=== PATIENT | female | born 1955 | race Caucasian/White ===

== ENCOUNTER → 2018-12-05 | Outpatient (CLI) | payer BC ==
[~2018-12-05] MED LIST: CATHETER FLUSH 10 ML SYR IV PRN; REGADENOSON 0.4 MG/5 ML SYR (LEXISCAN) IV ONE
[2018-12-05 08:51] VITALS: BP 165/74
[2018-12-05 08:55] VITALS: BP 158/74
--- NOTE | 2018-12-08 09:29 | STRESS TEST ---
DATE OF SERVICE: 12/05/2018 RESTING AND POST REGADENOSON TECHNETIUM-99M TETROFOSMIN SPECT CT IMAGING ORDERING PHYSICIAN: Al Coffey MD, POWER, PARVEZ, FACC PRIMARY PHYSICIAN: GUS Brown CLINICAL DIAGNOSES: Coronary artery disease. Baseline images were carried out after injection of 10.96 mCi technetium-99m Tetrofosmin. This was followed by 0.4 mg regadenoson and 28.6 mCi technetium-99m Tetrofosmin for stress imaging. The electrocardiogram showed sinus rhythm at baseline. It did not change significantly with the regadenoson infusion. The patient tolerated the procedure well. Review of images at rest and following stress indicates an inferolateral perfusion defect that is partially transient. Gated images show normal global left ventricular systolic function with normal regional wall motion. Left ventricular ejection fraction is calculated to be 47%. Left ventricular end diastolic volume is 99 mL. TID is absent (1.08). CONCLUSIONS: 1. This study is indicative of inferolateral myocardial ischemia with probable inferolateral myocardial infarction. 2. Inferolateral hypokinesis. 3. Left ventricular ejection fraction is calculated to be 47%. Job ID: [id number] DocumentID: [id number] Dictated Date: 12/08/2018 08:59:28 Dental Detail Representative Date: 12/08/2018 09:28:14 Dictated By: AL COFFEY MD, POWER, JIMP, JIMC,
== END ==
LOC: CARD 06:58
PROVIDERS: ATTEND Internal Medicine Cardiovascular Disease
DX: I42.0 Dilated cardiomyopathy (principal); I11.0 Hypertensive heart disease with heart failure; I50.22 Chronic systolic (congestive) heart failure; I25.10 Atherosclerotic heart disease of native coronary artery without angina pectoris; E11.9 Type 2 diabetes mellitus without complications; E78.5 Hyperlipidemia, unspecified
CPT/HCPCS: 78452; 93017

== ENCOUNTER → 2018-12-08 | Outpatient (CLI) | payer BC | LOC: CARD 13:11 | PROVIDERS: ATTEND Internal Medicine Cardiovascular Disease | DX: I11.0 Hypertensive heart disease with heart failure (principal); I50.22 Chronic systolic (congestive) heart failure; I42.0 Dilated cardiomyopathy; I25.10 Atherosclerotic heart disease of native coronary artery without angina pectoris; E78.5 Hyperlipidemia, unspecified; E11.9 Type 2 diabetes mellitus without complications; I07.1 Rheumatic tricuspid insufficiency | CPT/HCPCS: 93306 ==

== ENCOUNTER 2018-12-16 07:56 | Day surgery (SDC) | payer BC ==
[~2018-12-16] VITALS: Ht 167.6 cm; Wt 158.8 kg
[2018-12-16] VITALS (9 sets, daily range): BP systolic 97–137; BP diastolic 46–91
[2018-12-16] MEDS ORDERED: HEParin 1000 UNIT/ML (10ML VIAL) FOR BOLUS ONE (08:21)
[2018-12-16] MEDS ORDERED: LIDOCAINE 1% INJ 20 ML 20 ML VIAL ONE (08:21)
[2018-12-16] MEDS ORDERED: NS IV 1000 ML 3,000 ML ONE (08:21)
[2018-12-16 08:45] LABS: HEMOGLOBIN 14.5 G/DL (11.5-16.0); MEAN PLATELET VOLUME 9.9 FL (7.4-10.4); RED CELL DISTRIBUTION WIDTH 13.8 % (10.0-14.5); WHITE BLOOD COUNT 9.9 10^3/uL (4.3-11.0)
[2018-12-16 08:57] LABS: PROTHROMBIN TIME PATIENT 13.4 SEC (12.2-14.7)
[2018-12-16 09:03] LABS: ALBUMIN 4.1 GM/DL (3.2-4.5); BILIRUBIN,TOTAL 0.4 MG/DL (0.1-1.0); CALCIUM 9.7 MG/DL (8.5-10.1); CREATININE SERUM 1.53 MG/DL (0.60-1.30); POTASSIUM 4.6 MMOL/L (3.6-5.0); TOTAL PROTEIN 7.8 GM/DL (6.4-8.2)
[2018-12-16] MEDS ORDERED: ATOR10TA66 PO (09:16)
[2018-12-16] MEDS ORDERED: MAGN250T13 PO (09:16)
[2018-12-16] MEDS ORDERED: ASPI-983 PO (09:16)
[2018-12-16] MEDS ORDERED: CARV25TA PO ×2 (09:16)
[2018-12-16] MEDS ORDERED: OMEP20CA12 PO (09:16)
[2018-12-16] MEDS ORDERED: INSU100V31 SC (09:16)
[2018-12-16] MEDS ORDERED: MONT10TA21 PO (09:16)
[2018-12-16] MEDS ORDERED: FURO40TA4 PO (09:16)
[2018-12-16] MEDS ORDERED: LIRA0.6P SQ (09:16)
[2018-12-16] MEDS ORDERED: QUIN20TA16 PO (09:16)
[2018-12-16] MEDS ORDERED: SITA50TA PO (09:16)
[2018-12-16] MEDS ORDERED: LORA-877 PO (09:16)
[2018-12-16] MEDS ORDERED: ONDA4TAB11 PO (09:16)
[2018-12-16] MEDS ORDERED: FLUT16SP22 NS (09:16)
[2018-12-16] MEDS ORDERED: INSU200I4 SQ (09:16)
[2018-12-16] MEDS ORDERED: SPIR50TA4 PO (09:16)
[2018-12-16] MEDS ORDERED: ACET-2650 PO (09:21)
[2018-12-16] MEDS ORDERED: FURO80TA3 PO (09:21)
[2018-12-16] MEDS ORDERED: OMG1KC PO (09:21)
[2018-12-16] MEDS ORDERED: ACET-2469 PO (09:21)
[2018-12-16] MEDS ORDERED: NS IV 1000 ML 1,000 ML IV SCH ×2 (09:30→11:41)
[2018-12-16] MEDS ORDERED: MIDAZOLAM 5 MG/5 ML (VERSED) VIAL ONE (10:49)
[2018-12-16] MEDS ORDERED: fentaNYL INJECTION 100 MCG/2 ML AMP ONE (10:49)
--- NOTE | 2018-12-16 11:24 | Cardiac Procedure Note-CS/ASA ---
Pre-Procedure Note Pre-Op Procedure Note H&P Reviewed The H&P was reviewed, patient examined and no changes noted. Date H&P Reviewed: Dec 16, 2018 Time H&P Reviewed: 11:23 Conscious Sedation Pre-Proced Time 11:23 ASA Score 4 For ASA 3 and 4: Consider anesthesia and medical clearance. Also, for patients with a history of failed moderate sedation consider anesthesia. Airway Lungs Heart ASA score ASA 1: a normal healthy patient ASA 2: a patient with a mild systemic disease (mid diabetes, controlled hypertension, obesity ASA 3: a patient with a severe systemic disease that limits activity (angina , COPD, prior Myocardial infarction) ASA 4: a patient with an incapacitating disease that is a constant threat to life (CHF, renal failure) ASA 5: a moribund patient not expected to survive 24 hrs. (ruptured aneurysm) ASA 6: a declared brain- patient whose organs are being harvested. For emergent operations, add the letter E after the classification Mallampati Classification Grade 2 Sedation Plan Analgesia, Amnesia, Plan communicated to team members, Discussed options with patient/fam, Discussed risks with patient/fam The patient is an appropriate candidate to undergo the planned procedure, sedation, and anesthesia. The patient immediately re-assessed prior to indication. PEPE MCCORMICK MD FACP FAC CCDS Dec 16, 2018 11:24
[2018-12-16] MEDS ORDERED: PATIENT MAY USE OWN MEDS, ALL PO SCH (11:45)
--- NOTE | 2018-12-16 11:46 | Discharge Inst-Cardiology ---
Discharge Inst-Cardiac Discharge Medications Continued Medications: Acetaminophen (Tylenol Arthritis) 650 Mg Tablet.er 1300 MG PO BID PRN for PAIN-MILD, TAB Acetaminophen/Diphenhydramine (Tylenol Pm Ex-Strength Caplet) 1 Each Tablet 2 TAB PO HS, TAB Aspirin (Aspirin EC) 81 Mg Tablet.dr 81 MG PO 1100, TAB Atorvastatin Calcium (Atorvastatin Calcium) 10 Mg Tablet 10 MG PO 1100, TAB Carvedilol (Carvedilol) 25 Mg Tablet 50 MG PO 1100, TAB TAKES 2 (25MG) TABLETS Carvedilol (Carvedilol) 25 Mg Tablet 25 MG PO 1900, TAB Fluticasone Propionate (Fluticasone Propionate) 16 Gm [place].susp 1 SPRAY NS DAILY PRN for ALLERGIES, SPRAY Furosemide (Furosemide) 80 Mg Tablet 20 MG PO 1100, TAB TAKES 1/4 (80MG) TABLET Insulin Degludec (Tresiba Flextouch U-200) 200 Unit/1 Ml Insuln.pen 100 UNIT SQ HS, EA Insulin Regular, Human (Novolin R) 100 Unit/1 Ml Vial 15 UNIT SC TIDAC, VIAL Liraglutide (Victoza 2-Jose R) 0.6 Mg/0.1 Ml Pen.injctr 1.2 MG SQ 1200, VIAL Loratadine/Pseudoephedrine (Claritin-D 24 Hour Tablet) 1 Each Tab.er.24h 1 TAB PO DAILY PRN for CONGESTION, TAB Magnesium Oxide (Magnesium) 250 Mg Tablet 250 MG PO DAILY, TAB Montelukast Sodium (Singulair) 10 Mg Tablet 10 MG PO 1100, TAB [place] 3 Polyunsat Fatty Acids (Fish Oil 1,000 mg Capsule) 1,000 Mg Cap 1000 MG PO 1100, CAP Omeprazole (Omeprazole) 20 Mg Capsule.dr 20 MG PO 1100, CAP Ondansetron (Ondansetron Odt) 4 Mg Tab.rapdis 4 MG PO Q8H PRN for NAUSEA/VOMITING-1ST LINE, TAB Quinapril HCl (Quinapril HCl) 20 Mg Tablet 20 MG PO 1100,1900, TAB Sitagliptin Phosphate (Januvia) 50 Mg Tablet 50 MG PO 1100, TAB Spironolactone (Spironolactone) 50 Mg Tablet 50 MG PO 1100,1900, TAB PEPE MCCORMICK MD FACP FAC CCDS Dec 16, 2018 11:46
--- NOTE | 2018-12-16 11:46 | Discharge Inst-Post CATH ---
Discharge Inst-CATH/EP Post Cardiac Cath/EP D/C Inst Follow Up/Plan F/u with Dr Coffey in 3 weeks CARDIAC CATH DISCHARGE INSTRUCTIONS *Hold Metformin for 48 hours post heart cath. ACTIVITY * Go Home directly and rest. * Limit activity of the leg (or wrist if it was used) for 7 days including aerobics, swimming, jogging, bicycling, etc. * Restrict stair-climbing for 7 days if possible, if not, climb up with your non -cath leg, then bring together on the same step. * Avoid lifting, pushing, pulling or excessive movement of the affected extremity for 7 days. * Customary sexual activity may be resumed after 2 days-use caution not to use a position that strains or causes pain to the affected extremity. * No driving for 24 hours. * NO SMOKING. * Avoid straining for bowel movements for 7 days. * Gentle walking on level ground is allowed. * Returning to work will depend on the type of procedure and the results. Your doctor will discuss this with you. CALL YOUR DOCTOR FOR ANY OF THE FOLLOWING: *If bleeding from the puncture site occurs- Apply gentle pressure to site with clean cloth and call your doctor or EMS. * If a knot or lump forms under the skin, increases in size, or causes pain. * If bruising appears to be worsening or moving further down your leg instead of disappearing. * Temperature above 101 F. CARE OF YOUR GROIN INCISION; * Bruising or purple discoloration of the skin near the puncture site is common. * You may shower only, no bathtub bathing for 5 days. Be careful to avoid slipping as your leg may feel stiff. * If a closure device was used on your femoral artery, please see the attached guide regarding care of the device and your leg. * Leave the dressing on, until removed by office staff. CARE OF YOUR WRIST INCISION; * Bruising or purple discoloration of the skin near the puncture site is common. * You may shower. * DO NOT submerge wrist. * Leave dressing on, until removed by office staff.. PEPE COFFEY MD [facility] CCDS Dec 16, 2018 11:46
--- NOTE | 2018-12-16 12:11 | CARDIAC CATHETERIZATION ---
DATE OF SERVICE: 12/16/2018 The patient is 63-year-old lady with a history of cardiomyopathy who recently had a stress test that showed inferolateral ischemia. Cardiac catheterization was carried out today after having obtained an informed consent. Vigorous perioperative hydration was carried out because of the patient's chronic renal insufficiency. This was initiated before, continued during, and continued after the procedure. DESCRIPTION OF PROCEDURE: She was brought to the cardiac catheterization laboratory. Right groin was prepared and draped in the usual sterile fashion. Lidocaine 1% was used for local anesthesia. Modified Seldinger technique was used to advance a 5-Monegas[place] sheath into right femoral artery. A 5-[place]onegas[place] JL4 catheter for left coronary angiography. A 5-[place]onegas[place] JR4 catheter used for right coronary angiography. A 5-Monegasque pigtail catheter was used for left heart catheterization, left ventricular angiography. At the end of the procedure, angiography of the right femoral artery was carried out through the sheath. Mynx was used to achieve hemostasis. She tolerated the procedure well. HEMODYNAMICS: Left ventricular end-diastolic pressure following coronary angiography is 8 mmHg. There is no significant pressure gradient on pullback across the aortic valve. Ascending aortic pressure was 110/62 with a mean of 80 mmHg. CORONARY ANGIOGRAPHY: Left main coronary artery is free of significant disease. Left anterior descending artery is free of significant disease. Left circumflex artery is free of significant disease. The right coronary artery is dominant and free of significant disease. LEFT VENTRICULAR ANGIOGRAPHY: Left ventricular angiography was carried out in the right anterior oblique projection. Global left ventricular systolic function is normal. No regional wall motion abnormality is seen. Left ventricular ejection fraction is estimated to be 50% to 55%. There does not appear to be significant mitral regurgitation. CONCLUSIONS: 1. No angiographically significant coronary artery disease. 2. Normal global left ventricular systolic function with an ejection fraction of 50 to 55%. 3. Normal left ventricular end-diastolic pressure. DISCUSSION AND RECOMMENDATIONS: Based on results of the study, it appears appropriate to continue a conservative approach. Risk factor modification has been reviewed. Outpatient followup is advised. Job ID: [id number] DocumentID: [id number] Dictated Date: 12/16/2018 11:55:18 Wood Scrap Handler Date: 12/16/2018 12:11:11 Dictated By: PEPE MCCORMICK MD, MA, FACP, FACC, MTDD
--- NOTE | 2018-12-16 12:15 | NUR ---
LEFT AC INFILTRATED 1,1. REMOVED WITH TIP INTACT. ALBA EASTMAN RN RESTARTED LEFT AC 20G.
== END 2018-12-16 15:30 | disposition home or self-care (01) ==
LOC: CATH 07:56 → SDC 12:10 → CATH 15:30
PROVIDERS: ATTEND Internal Medicine Cardiovascular Disease
DX: R94.39 Abnormal result of other cardiovascular function study (principal); I42.9 Cardiomyopathy, unspecified; I50.22 Chronic systolic (congestive) heart failure; R09.02 Hypoxemia; E11.9 Type 2 diabetes mellitus without complications; E66.9 Obesity, unspecified; Z68.43 Body mass index [BMI] 50.0-59.9, adult; Z79.82 Long term (current) use of aspirin; Z79.4 Long term (current) use of insulin; Z79.899 Other long term (current) drug therapy; Z95.810 Presence of automatic (implantable) cardiac defibrillator
CPT/HCPCS: 36415; 36430; 80053; 80061; 85027; 85610; 85730; 87081; 93458

== ENCOUNTER 2019-02-10 19:34 | Outpatient (CLI) | payer BC ==
[~2019-02-10 19:34] MED LIST changes: +ACET-2469 PO; +ACET-2650 PO; +ASPI-983 PO; +ATOR10TA66 PO; +CARV25TA PO; -CATHETER FLUSH 10 ML SYR IV PRN; +FLUT16SP22 NS; +FURO40TA4 PO; +FURO80TA3 PO; +INSU100V31 SC; +INSU200I4 SQ; +LIRA0.6P SQ; +LORA-877 PO; +MAGN250T13 PO; +MONT10TA21 PO; +OMEP20CA12 PO; +OMG1KC PO; +ONDA4TAB11 PO; +QUIN20TA16 PO; -REGADENOSON 0.4 MG/5 ML SYR (LEXISCAN) IV ONE; +SITA50TA PO; +SPIR50TA4 PO
== END 2019-02-11 05:39 | disposition home or self-care (01) ==
LOC: SLEEP 19:34
PROVIDERS: ATTEND Otolaryngology Otolaryngology/Facial Plastic Surgery
DX: G47.33 Obstructive sleep apnea (adult) (pediatric) (principal)
CPT/HCPCS: 95810

== ENCOUNTER → 2020-04-11 | Outpatient (CLI) | payer BC, OTHER ==
[~2020-04-11] MED LIST changes: -ACET-2469 PO; +ACET-2715 PO; -OMEP20CA12 PO; +OMEP20CA18 PO
[2020-04-11 11:35] LABS: BASOPHILS % (AUTO) 1 % (0-10); EOSINOPHILS # (AUTO) 0.2 10^3/uL (0.0-0.3); EOSINOPHILS % (AUTO) 3 % (0-10); HEMATOCRIT 43 % (35-52); HEMOGLOBIN 13.8 G/DL (11.5-16.0); LYMPHOCYTES # (AUTO) 2.2 X 10^3 (1.0-4.0); LYMPHOCYTES % (AUTO) 33 % (12-44); MEAN CORPUSCULAR HEMOGLOBIN 30 PG (25-34); MEAN CORPUSCULAR HGB CONC 32 G/DL (32-36); MEAN CORPUSCULAR VOLUME 93 FL (80-99); MEAN PLATELET VOLUME 9.8 FL (7.4-10.4); MONOCYTES # (AUTO) 0.7 X 10^3 (0.0-1.0); MONOCYTES % (AUTO) 10 % (0-12); NEUTROPHILS # (AUTO) 3.6 X 10^3 (1.8-7.8); NEUTROPHILS % (AUTO) 54 % (42-75); PLATELET COUNT 325 10^3/uL (130-400); RED CELL DISTRIBUTION WIDTH 14.4 % (10.0-14.5); WHITE BLOOD COUNT 6.6 10^3/uL (4.3-11.0)
[2020-04-11 11:47] LABS: ALBUMIN 3.5 GM/DL (3.2-4.5); POTASSIUM 4.3 MMOL/L (3.6-5.0)
[2020-04-11 11:49] LABS: CALCIUM 8.8 MG/DL (8.5-10.1)
[2020-04-11 11:50] LABS: TOTAL PROTEIN 6.7 GM/DL (6.4-8.2)
[2020-04-11 11:52] LABS: BILIRUBIN,TOTAL 0.5 MG/DL (0.1-1.0)
[2020-04-11 11:53] LABS: CREATININE SERUM 1.11 MG/DL (0.60-1.30)
[2020-04-11 11:56] LABS: MAGNESIUM 2.2 MG/DL (1.6-2.4)
== END ==
LOC: CARD 11:03
PROVIDERS: ATTEND Internal Medicine Cardiovascular Disease
DX: I25.10 Atherosclerotic heart disease of native coronary artery without angina pectoris (principal); I11.0 Hypertensive heart disease with heart failure; I50.22 Chronic systolic (congestive) heart failure; E78.5 Hyperlipidemia, unspecified; E66.9 Obesity, unspecified; E11.9 Type 2 diabetes mellitus without complications; Z95.810 Presence of automatic (implantable) cardiac defibrillator
CPT/HCPCS: 36415; 80053; 83735; 84443; 85025; 93306

== ENCOUNTER → 2020-07-14 | Outpatient (CLI) | payer OTHER ==
[~2020-07-14] MED LIST changes: -ACET-2715 PO; +ACET-3075 PO; +ASPI-1238 PO; -ASPI-983 PO
--- NOTE | 2020-07-14 14:11 | Diagnostic Imaging Report ---
PROCEDURE: US Renal Bilateral. TECHNIQUE: Multiple real-time grayscale images were obtained over the kidneys in various projections bilaterally. INDICATION: Renal disease. Body habitus severely limits exam sensitivity. The right kidney is 12.2 cm, the left kidney 10.6 cm. There is no hydroureteronephrosis. Peripheral to the bilateral kidneys is a crescentic area of hypoechogenicity. Its unclear if this is prominent perinephric fat or sliver of perinephric fluid. No echogenic or shadowing stone. Right renal cortical cyst 2.4 cm and a right renal pelvic cyst of 2.6 cm noted. IMPRESSION: Unobstructed kidneys indeterminate findings for prominent perinephric fat or small volume perinephric fluid. No hydronephrosis. Right renal cortical and parapelvic cystic-appearing changes. Normal renal volumes. Sensitivity and detail limited by body habitus. Dictated by: Dictated on workstation # [id number]
== END ==
LOC: RAD 12:30
PROVIDERS: ATTEND Internal Medicine Nephrology
DX: I12.9 Hypertensive chronic kidney disease with stage 1 through stage 4 chronic kidney disease, or unspecified chronic kidney disease (principal); N18.30 Chronic kidney disease, stage 3 unspecified; E66.01 Morbid (severe) obesity due to excess calories; R60.0 Localized edema
CPT/HCPCS: 76770

== ENCOUNTER 2021-05-11 01:48 | Emergency (ER) | payer MEDICARE, OTHER ==
[~2021-05-11] VITALS: Ht 168 cm; Wt 165.0 kg
--- NOTE | 2021-05-11 02:14 | ED Integumentary General ---
General Chief Complaint: Allergic Reaction Stated Complaint: RASH Nursing Triage Note: RASH TO ARMS/TORSO, LEGS Source: patient Exam Limitations: no limitations History of Present Illness Date Seen by Provider: May 11, 2021 Time Seen by Provider: 01:58 Initial Comments Patient is a 66-year-old female who presents to the emergency department tonight with a chief complaint of a rash affecting her arms torso and legs. Patient states that she woke up at about 1245 to use the bathroom and noticed when she was going back to bed that her arms were very itchy. Patient states that her throat felt a little "tight". She denies any swelling in her mouth or difficulty swallowing. No wheezing. No diarrhea and a slight bit of nausea. She cannot recall any specific triggers that might have caused her rash. No new detergents or soaps. No new foods. She is a diabetic on insulin and oral medications. She does take Accupril and has been on it for "years". She states that she took 1 Benadryl prior to arrival. All other review of systems reviewed and negative except as stated above. Timing/Duration: just prior to arrival Severity: moderate Location: torso, extremities Possible Cause: no cause identified Modifying Factors: improves with antihistamine Associated Symptoms: denies symptoms Allergies and Home Medications Allergies Coded Allergies: exenatide (Verified Allergy, Intermediate, HIVES, 12/16/18) FACE SWELLING Home Medications Acetaminophen 650 Mg Tablet.er, 1,300 MG PO BID PRN for PAIN-MILD, (Reported) Acetaminophen/Diphenhydramine 1 Each Tablet, 2 TAB PO HS, (Reported) Aspirin 81 Mg Tablet.dr, 81 MG PO 1100, (Reported) Atorvastatin Calcium 10 Mg Tablet, 10 MG PO 1100, (Reported) Carvedilol 25 Mg Tablet, 50 MG PO 1100, (Reported) TAKES 2 (25MG) TABLETS Carvedilol 25 Mg Tablet, 25 MG PO 1900, (Reported) Fluticasone Propionate 16 Gm [place].susp, 1 SPRAY NS DAILY PRN for ALLERGIES, (Reported) Furosemide 80 Mg Tablet, 20 MG PO 1100, (Reported) TAKES 1/4 (80MG) TABLET Insulin Degludec 200 Unit/1 Ml Insuln.pen, 100 UNIT SQ HS, (Reported) Insulin Regular, Human 100 Unit/1 Ml Vial, 15 UNIT SC TIDAC, (Reported) Liraglutide 0.6 Mg/0.1 Ml Pen.injctr, 1.2 MG SQ 1200, (Reported) Loratadine/Pseudoephedrine 1 Each Tab.er.24h, 1 TAB PO DAILY PRN for CONGESTION, (Reported) Magnesium Oxide 250 Mg Tablet, 250 MG PO DAILY, (Reported) Montelukast Sodium 10 Mg Tablet, 10 MG PO 1100, (Reported) [place] 3 Polyunsat Fatty Acids 1,000 Mg Cap, 1,000 MG PO 1100, (Reported) Omeprazole 20 Mg Capsule.dr, 20 MG PO 1100, (Reported) Ondansetron 4 Mg Tab.rapdis, 4 MG PO Q8H PRN for NAUSEA/VOMITING-1ST LINE, (Reported) Quinapril HCl 20 Mg Tablet, 20 MG PO 1100,1900, (Reported) Sitagliptin Phosphate 50 Mg Tablet, 50 MG PO 1100, (Reported) Spironolactone 50 Mg Tablet, 50 MG PO 1100,1900, (Reported) Patient Home Medication List Home Medication List Reviewed: Yes Review of Systems Review of Systems Constitutional: see HPI EENTM: other (throat "tight") Respiratory: no symptoms reported Cardiovascular: no symptoms reported Gastrointestinal: no symptoms reported Genitourinary: no symptoms reported Musculoskeletal: no symptoms reported Skin: pruritus, rash All Other Systems Reviewed Negative Unless Noted: Yes Past Wksrnpt-Yuhnxl-Hkvjjd Hx Patient Social History Tobacco Use?: No Substance use?: No Alcohol Use?: No Pt feels they are or have been: No Past Medical History Defibrillator, Gallbladder, Thyroidectomy Respiratory: Yes (O2 AT 2L NIGHTLY) Cardiac: Yes Cardiomyopathy, Hypertension Neurological: No Genitourinary: Yes (REPORTS AN ADMISSION WITH KIDNEY FUNCTION ISSSUES, RESOLVING WITH MED VANG) Gastrointestinal: Yes Gastroesophageal Reflux, Diverticulosis Cancer: No Blood Disorders: No Adverse Reaction/Blood Tranf: No Physical Exam Vital Signs Vital Signs - First Documented 05/11/21 01:56 Temp 35.3 Pulse 65 Resp 16 B/P (MAP) 111/60 (77) Pulse Ox 97 O2 Delivery Room Air Capillary Refill : Less Than 3 Seconds General Appearance: WD/WN, no apparent distress HEENT: PERRL/EOMI, normal ENT inspection, pharynx normal Neck: normal inspection Cardiovascular: regular rate, rhythm Respiratory: lungs clear, normal breath sounds, no respiratory distress, no accessory muscle use Gastrointestinal: non tender, soft Extremities: normal range of motion, non-tender, normal inspection, no pedal edema Neurologic/Psychiatric: alert, normal mood/affect, oriented x 3 Skin: warm/dry Skin Problem Location: generalized, upper extremities, torso Skin Problem Character: erythema, patchy, rash Progress/Results/Core Measures Results/Orders My Orders Orders - ERWIN GARRISON MD Diphenhydramine Tablet (Benadryl Tablet) (05/11/21 02:15) Famotidine Tablet (Pepcid Tablet) (05/11/21 02:15) Medications Given in ED Current Medications Medications Dose Ordered Sig/Flo Route Start Time Stop Time Status Last Admin Dose Admin Diphenhydramine HCl 25 mg ONCE ONCE PO 05/11/21 02:15 05/11/21 02:16 DC 05/11/21 02:11 25 MG Famotidine 20 mg ONCE ONCE PO 05/11/21 02:15 05/11/21 02:16 DC 05/11/21 02:11 20 MG Vital Signs/I&O 05/11/21 01:56 Temp 35.3 Pulse 65 Resp 16 B/P (MAP) 111/60 (77) Pulse Ox 97 O2 Delivery Room Air Blood Pressure Mean: 77 Progress Progress Note : Time: 02:59 Progress Note Patient monitored in the ER about 45 minutes after benadryl and pepcid. Rash is much improved. She feels better. Counselled on benadryl and pepcid use at home. No steroids tonight. Urged to follow up with her Clinic in [place]. Return precautions given. Departure Impression Primary Impression: Rash and nonspecific skin eruption Disposition: 01 HOME, SELF-CARE Condition: Stable Departure-Patient Inst. Decision time for Depature: 02:11 [facility]errals: [facility] Primary Care Physician TIM SALDIVAR (Family) Primary Care Physician Patient Instructions: Skin Rash Add. Discharge Instructions: Take over the counter benadryl 2 pills (50mg) every 6 hours as needed for itching. The benadryl may give you a dry mouth. You should also take over the counter Pepcid 20mg twice a day for the next 3 days. Contact your primary care provider tomorrow - she may want to put you on prednisone (steroids) with strict blood glucose monitoring, over the next few days. Your primary care doctor may also consider changing your blood pressure medication (the Accupril). Come back to the Emergency Department for any worsening rash, shortness of breath, mouth or throat swelling, or any other emergent symptoms. ERWIN GARRISON MD May 11, 2021 02:14
[2021-05-11] MEDS ORDERED: FAMOTIDINE 20 MG (PEPCID) TABLET PO ONE (02:15)
[2021-05-11] MEDS ORDERED: diphenhydrAMINE 25 MG TAB (BENADRYL) PO ONE (02:15)
[2021-05-11 02:59] VITALS: BP 115/73
--- OUTSIDE RECORDS SUMMARY | 2021-05-15 16:26 | XMS REPORT | Clinical Summary ---
Author Author [facility] Organization [facility] Address Unknown Phone Unavailable Care Team Providers Care Costume Rental Clerk Name Role Phone Andreia Richardson APRN PCP Unavailable Joanne Buckley RN Unavailable Unavailable Source Comments Some departments are not documenting in the electronic medical record. If you d o not see the information that you expected, contact Release of Information in [facility] [employer] Information Management department at [phone] for further assistan ce in locating additional records.[facility] Allergies Comments Active Allergy Reactions Severity Noted Date Exenatide Microspheres HIVES Medium 015 Medications End Date Status Medication Sig Dispensed Refills Start Date Active fluticasone (FLONASE) 50 Apply 2 0 mcg/actuation nasal spray Sprays to each nostril as directed daily. Active HYDROcodone/acetaminophen Take 1 Tab by 0 (NORCO; VICODIN) 5-325 mg mouth every 4 tablet hours as needed for Pain Active cyclobenzaprine Take 10 mg by 0 (FLEXERIL) 10 mg tablet mouth three times daily as needed for Muscle Cramps. Active naproxen (NAPROSYN) 500 Take 500 mg 0 mg tablet by mouth twice daily with meals. Active glipiZIDE CR (GLUCOTROL Take 10 mg by 0 XL) 10 mg tablet mouth twice daily. Take 1 tablet by Mouth BID with meals Active metFORMIN (GLUCOPHAGE) Take 1,000 mg 0 1,000 mg tablet by mouth twice daily with meals. Active pantoprazole DR Take 40 mg by 0 (PROTONIX) 40 mg tablet mouth daily. Active loratadine-pseudoephedrin Take 1 Tab by 0 e (CLARITIN-D 24-HOUR) mouth daily. 10-240 mg tablet Active nitroglycerin (NITROSTAT) Place 0.4 mg 0 0.4 mg tablet under tongue every 5 minutes as needed for Chest Pain. Active ASCORBATE CALCIUM Take 1 Tab by 0 (VITAMIN C PO) mouth daily. Active cetirizine (ZYRTEC) 10 mg Take 10 mg by 0 tablet mouth daily. Active aspirin EC 81 mg tablet Take 81 mg by 0 mouth daily. Active MULTIVITAMIN PO Take 1 Tab by 0 mouth daily. Active carvedilol (COREG) 25 mg Take 1.5 Tabs 270 Tab 4 tablet by mouth 6 twice daily with meals. Take with food. Active magnesium oxide (MAG-OX) Take 1 Tab by 90 Tab 3 400 mg tablet mouth daily. 7 Active NOVOLIN R 100 unit/mL 0 injection 7 Active ondansetron (ZOFRAN ODT) 0 4 mg rapid dissolve 7 tablet Active insulin glargine (LANTUS Inject 83 0 SOLOSTAR) 100 unit/mL (3 Units under mL) injection PEN the skin at bedtime daily. Active potassium chloride 10meq with 180 capsule 4 01 (K-DUR) 10 mEq tablet each 40mg 7 furosemide Active spironolactone TAKE ONE 180 tablet 3 (ALDACTONE) 50 mg tablet TABLET BY 7 MOUTH TWICE DAILY Active quinapril(+) (ACCUPRIL) TAKE ONE 180 tablet 0 20 mg tablet TABLET BY 8 MOUTH TWICE DAILY Active furosemide (LASIX) 80 mg TAKE ONE 100 tablet 1 0 tablet TABLET BY 8 MOUTH ONCE DAILY (40MG IF NO FLUID RETENTION,12 0MG IF EXCESS FLUID RETENTION) Active Problems Problem Noted Date Bilateral lower extremity edema 05/24/2017 Chronic systolic CHF (congestive heart failure), NYHA class 2 03/28/2016 Hypokalemia 09/14/2015 Last Assessment & Plan: Formatting of this note might be differ ent from the original. Her potassium in June was low at 3 .3. She admits she has been only taking her potassium a couple of times a week. She was educated on the importance of taking it daily. Her spir onolactone was increased to 50 mg twice daily. We will recheck her potass ium today and in a couple of weeks. ICD (implantable cardioverter-defibrillator) in place 07/13/2015 Overview: Formatting of this note might be differ ent from the original. 07/01/2015 - Single Chamber ICD: [employer] - Model Number: [id number]. RV - [employer]: OPTISUR E [id number] 65 CM Last Assessment & Plan: Formatting of this note might be differ ent from the original. Her incision is well healed. Her device was checked today and demonstrated normal function. Chronic thresholds wer e programmed. See device check and cardiovascular studies for further deta ils. We will continue to monitor her remotely. Dilated cardiomyopathy 07/01/2015 Last Assessment & Plan: Formatting of this note might be differ ent from the original. On exam, fluid status appears slightly elevated. She was instructed to take her furosemide when she returns home to day. Heart failure medications were reviewed. To optimize therapy we have i ncreased her carvedilol to 6.25 mg twice daily. We would like to follow up with her nurse practitioner every few weeks to continue to up titrate her medication. She has previously been on increased carvedilol but stopped due to fluid retention. We recommended that if this occurs to take additional lasix as needed. She has been taking naproxen at least once daily. Since thi s can be a contributing factor to her fluid retention, we have recommende d she discuss possible alternatives with her pcp. Chronic systolic congestive heart failure, NYHA class 3 06/14/2015 CAD (coronary artery disease), mild, non-obstructive 06/14/2015 Overview: Formatting of this note might be differ ent from the original. 2011 CATH: EF 20, LVEDP=40, <20% IRREGU LARITY L ast Assessment & Plan: Formatting of this note might be differ ent from the original. Ms. Byrd denies any new symptomatic c omplaints suggestive of ischemia. Her cath in 2011 did not demonstrate an y significant obstructive CAD. She was educated on the importance of ongoi ng risk factor modification. Fatigue 06/13/2015 Essential hypertension with goal blood pressure less than 140/90 06/13/2015 Last Assessment & Plan: Formatting of this note might be differ ent from the original. Slightly elevated. Her medications were adjusted to optimize blood pressure control as well as heart failure therap y. SOB (shortness of breath) 06/13/2015 Type 2 diabetes mellitus without complication 2014 NICM (nonischemic cardiomyopathy) 06/13/2015 Overview: Formatting of this note might be differ ent from the original. 01/03/15 Echo: LV dysfunction with regio nal basilar inferior and septal akinesis, moderate diffuse hypokinesis, moderately reduced systolic EF ~ 30-35%. LA enlargement. Mild tricuspid regurgitation. PH, mild to moderate. Morbid obesity with BMI of 60.0-69.9, adult 06/13/20 15 Medical History Medical History Date Comments Fatigue 06/13/2015 Essential hypertension 06/13/2015 SOB (shortness of breath) 06/13/2015 Type 2 diabetes mellitus without 06/13/2015 complication (HCC) DCM (dilated cardiomyopathy) ([facility]) 06/13/2015 Morbid obesity ([facility]) 06/13/2015 NICM (nonischemic cardiomyopathy) 06/13/201501/03 Echo: LV dysfunction with regional basilar (HCC) inferior and septal akinesi s, moderate diffuse hypokinesis, moderately reduced systoli c EF ~ 30-35%. LA enlargement. Mild tricuspid regurgitation. PH, mild to moderate. CAD (coronary artery disease), mild, 06/14/2015 2 012 CATH: EF 20, LVEDP=40, <20% IRREGULARITY non-obstructive Chronic systolic congestive heart 06/14/2015 failure, NYHA class 3 ([facility]) Morbid obesity with BMI of 60.0-69.9, 06/13/2015 adult ([facility]) ICD (implantable 07/13/2015 cardioverter-defibrillator) in place Family History Relation Name Status Comments Father Mother Social History Date Tobacco Use Types Packs/Day Years Used Never Smoker Smokeless Tobacco: Never Used Drinks/Week oz/Week Comments Alcohol Use 0 Standard drinks or equivalent 0.0 No Sex Assigned at Date Recorded Not on file Last Filed Vital Signs Reading Time Taken Comments Vital Sign 140/82 05/24/2017 10:03 AM CDT Blood Pressure 78 05/24/2017 10:03 AM CDT Pulse 36.6 C (97.9 F) 07/02/2015 9:35 AM CDT Temperature - - Respiratory Rate 97% 07/02/2015 8:20 AM CDT Oxygen Saturation - - Inhaled Oxygen Concentration 174.2 kg (384 lb) 05/24/2017 10:03 AM CDT Weight 170.2 cm (5' 7") 05/24/2017 10:03 AM CDT Height 60.14 05/24/2017 10:03 AM CDT Body Mass Index Plan of Treatment Health Maintenance Due Date Last Done Comments HIV SCREENING 1971 DILATED EYE EXAM 1974 DTAP/TDAP VACCINES (1 - 1974 Tdap) FOOT EXAM 1974 HBA1C 1974 HEPATITIS C SCREENING 1974 PHYSICAL (COMPREHENSIVE) 1974 EXAM BREAST CANCER SCREENING 1996 COLORECTAL CANCER 2006 SCREENING SHINGLES RECOMBINANT 2006 VACCINE (1 of 2) OSTEOPOROSIS 2021 SCREENING/MONITORING PNEUMONIA (PPSV23) 2021 VACCINE (1 of 1 - PPSV23) INFLUENZA VACCINE 07/14/2021 Implants Device Identifier Shelf Expiration Date Model / Serial / L ot Implanted Type Area Manufactur er Icd ICD Results Not on filefrom Last 3 Months Insurance Type Payer Benefit Subscriber ID Effective Phone Address Plan / Dates Group PPO BCBS [employer] [id number] [phone] Advance Directives 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 needed
== END 2021-05-11 03:02 | disposition home or self-care (01) ==
LOC: EDUNIT# 01:48 → ER 01:51
DX: R21 Rash and other nonspecific skin eruption (principal); I10 Essential (primary) hypertension; K21.9 Gastro-esophageal reflux disease without esophagitis; E11.9 Type 2 diabetes mellitus without complications; Z79.899 Other long term (current) drug therapy; Z79.82 Long term (current) use of aspirin; Z79.4 Long term (current) use of insulin
CPT/HCPCS: 99283

== ENCOUNTER → 2021-07-17 | Outpatient (CLI) | payer MEDICARE | LOC: CARD 10:30 | PROVIDERS: ATTEND Nurse Practitioner Family | DX: I51.7 Cardiomegaly (principal); I42.0 Dilated cardiomyopathy | CPT/HCPCS: 93306 ==